=== PATIENT | female | born 1995 | race Caucasian/White ===

== ENCOUNTER 2018-04-02 13:42 | Emergency (ER) | payer OTHER ==
[~2018-04-02] VITALS: Ht 157.5 cm; Wt 67.1 kg
[2018-04-02] MEDS ORDERED: VALTREX 500 MG500 M1 PO (15:07)
[2018-04-02 15:18] VITALS: BP 142/90
[2018-04-04 21:05] LABS: HSV 1 DNA Positive (Negative); HSV 2 DNA Negative (Negative)
== END 2018-04-02 15:19 | disposition home or self-care (01) ==
LOC: M.ERS 13:42
PROVIDERS: Nurse Practitioner Family
DX: A60.04 Herpesviral vulvovaginitis (principal)